=== PATIENT | female | born 1970 | race Caucasian/White ===

== ENCOUNTER 2020-12-23 11:49 | Outpatient (CLI) | payer OTHER, SELFPAY ==
--- NOTE | 2020-12-23 13:06 | ECG_ITS ---
Measurements Intervals [place] Rate: 59 P: 52 SC: 129 QRS: 23 QRSD: 96 T: -2 QT: 404 QTc: 402 Interpretive Statements SINUS BRADYCARDIA NONSPECIFIC T-WAVE ABNORMALITY- ANTEROLAT/INF LEADS BASELINE ARTIFACT- I, II, III, AVR, AVL, AVF BORDERLINE ECG Electronically Signed On 12-23-2020 13:50:24 [employer] by Carter Leigh D.O.
[2020-12-23 13:28] LABS: Basophils Percent Auto 0.3 % (0.2-1.2); Eosinophils Absolute Auto 0.1 K/mm3 (0-0.3); Eosinophils Percent Auto 1.3 % (0-4.4); Hematocrit 43.6 % (37.0-47.0); Hemoglobin 14.4 g/dL (12.0-15.0); Immature Granulocyte Absolute 0.02 K/mm3 (0.00-0.031); Immature Granulocyte Percent A 0.3 % (0-0.5); Lymphocytes Percent Auto 31.4 % (18.3-44.2); Mean Corpuscular Hemoglobin 29.3 pg (26-34); Mean Corpuscular Volume 88.8 fl (80-100); Mean Platelet Volume 8.7 fl (7.4-10.4); Monocytes Absolute Auto 0.4 K/mm3 (0.1-0.6); Monocytes Percent Auto 5.5 % (2.6-8.5); Neutrophils Absolute Auto 4.7 K/mm3 (1.3-6.7); Neutrophils Percent Auto 61.2 % (45.5-73.1); Platelet Count Result 284 k/mm3 (150-375); Red Blood Count 4.91 M/mm3 (4.2-5.4); Red Cell Distribution Width 12.5 % (11.5-14.5); White Blood Count 7.6 K/mm3 (4.5-10.0)
[2020-12-23 13:37] LABS: INR 0.9; Prothrombin Time 12.9 Seconds (11.1-14.7)
[2020-12-23 13:38] LABS: Partial Thromboplastin Time 22.6 SECONDS (22.3-36.8)
[2020-12-23 13:44] LABS: Alanine Aminotransferase 24 U/L (4-35); Albumin Level 3.8 g/dL (3.5-5.1); Alkaline Phosphatase 111 U/L (38-126); Anion Gap 4 mmol/L (8-16); Aspartate Amino Transferase 30 U/L (14-36); Bilirubin,Total 0.3 mg/dL (0.2-1.3); Blood Urea Nitrogen 18 mg/dL (7-17); Calcium 8.4 mg/dL (8.4-10.2); Carbon Dioxide 34 mmol/L (22-30); Chloride 105 mmol/L (98-107); Estimated Glomerular Filt Rate > 60; Glucose 101 mg/dL (65-105); Potassium 3.5 mmol/L (3.4-5.0); Sodium 143 mmol/L (137-145)
== END 2020-12-23 11:50 | disposition home or self-care (01) ==
LOC: ANHSURGERY 11:53
PROVIDERS: Family Provider Internal Medicine; PCP Emergency Medicine; Visit Provider Urology
DX: N81.4 Uterovaginal prolapse, unspecified (principal); R00.0 Tachycardia, unspecified; Z01.818 Encounter for other preprocedural examination; R94.31 Abnormal electrocardiogram [ECG] [EKG]
CPT/HCPCS: 36415; 80053; 85025; 85610; 85730; 93005

== ENCOUNTER 2021-02-19 14:20 | Outpatient (CLI) | payer OTHER, SELFPAY | END 2021-02-19 14:21 | disposition home or self-care (01) | LOC: ANHSURGERY 14:22 | PROVIDERS: PCP Emergency Medicine; Visit Provider Urology | DX: N81.4 Uterovaginal prolapse, unspecified (principal); Z01.818 Encounter for other preprocedural examination | CPT/HCPCS: 36415; 86850; 86900; 86901; 87086; 87088 ==

== ENCOUNTER 2021-02-24 01:47 | Day surgery (SDC) | payer OTHER, SELFPAY ==
[2020-12-23 12:22] VITALS: BP 112/69; PULSE 68; RESP 16; TEMP 36.8; O2SAT 98; BMI 29.6
[2021-02-11 15:36] VITALS: BMI 29.8
--- NOTE | 2021-02-15 11:36 | PM.IMHP ---
H&P: HPI History of Present Illness Date/Time: 02/15/21 11:36 50-year-old with uterine prolapse, stress urine incontinence. she presents for surgical management history of DVT / PE. Will require postoperative blood thinner Chief Complaint: uterine prolapse, stress incontinence Review of Systems Review of Systems: All systems reviewed & are unremarkable except as noted in HPI and below PMFSH Family History Family History (Updated 06/12/16 @ 23:19 by DOCTOR UNKNOWN) Father Family history of diabetes mellitus in first degree relative Family history of renal failure Patient's father is Other Diabetes mellitus Social History Social History Smoking status: Never smoker Alcohol intake: never Substance use: never Additional living arrangements comments: SPOUSE AND CHILD Spiritual care concerns: No Meds Home Medications and Allergies Home Medications Medication Instructions Recorded Confirmed Type pvhosqqtru-uolxdmvsqahyn-cwvx 1 tablet PO QID PRN 12/23/20 02/11/21 History calcium 600 mg PO DAILY 12/23/20 02/11/21 History cyanocobalamin (vitamin B-12) 5,000 mcg SUBLINGUAL DAILY 12/23/20 02/11/21 History [Vitamin B-12] ferrous sulfate [Iron (ferrous 325 mg PO DAILY 12/23/20 02/11/21 History sulfate)] magnesium 250 mg PO DAILY 12/23/20 02/11/21 History metoprolol tartrate 25 mg PO BID 12/23/20 02/11/21 History multivitamin [Multiple Vitamin] 1 tablet PO DAILY 12/23/20 02/11/21 History amoxicillin 500 mg PO Q12H 02/11/21 02/11/21 History Allergies Allergy/AdvReac Type Severity Reaction Status Date / Time codeine Allergy Unknown Hives Verified 02/11/21 15:33 Iodinated Contrast Media Allergy Unknown Rash Verified 02/11/21 15:33 hydrocodone Allergy Chest Pain Verified 02/11/21 15:33 tramadol Allergy Hives Verified 02/11/21 15:33 lisinopril AdvReac Unknown Cough Verified 02/11/21 15:33 Exam Const: General: cooperative and healthy appearing HENMT: Head: normal to inspection Face and sinus: normal facial exam Eyes: General: appearance normal, both eyes and all related structures Chest: Chest palpation & inspection: normal inspection of the chest Resp: Effort & Inspection: normal respiratory effort and able to speak in complete sentences : Bimanual exam- vagina & uterus: Uterus displaced Bimanual Exam- Adnexa, other: No apex supported and vaginal apex descent Back/Spine/Pelvis: Back: no CVA tenderness Skin: General skin exam: normal color Neuro: General: oriented to person, oriented to place, oriented to time and patient oriented x3 Assessment and Plan Assessment and plan (1) Uterine prolapse: Code(s): N81.4 - Uterovaginal prolapse, unspecified Status: Acute Assessment and Plan: robotic sacral colpopexy (2) LUCIANA (stress urinary incontinence, female): Code(s): N39.3 - Stress incontinence (female) (male) Status: Acute Assessment and Plan: urethral sling
[2021-02-24] VITALS (15 sets, daily range): BP systolic 109–161; BP diastolic 54–92; PULSE 64–98; RESP 10–20; TEMP 36.2–37.1; O2SAT 94–100
[2021-02-24] MEDS: ACETAMINOPHEN 500 MG TABLET 1000 MG PO (06:18)
[2021-02-24] MEDS: LACTATED RINGERS 1,000 ML 30 ML IV CONT ×2 (06:30→11:15)
--- NOTE | 2021-02-24 06:46 | P.PNAN_ITS ---
Anes - Initial Pre Proc Eval Procedure: Operation Date: 02/24/21 07:30 Proposed Procedures p Robotic Sacrocolpopexy Possible Urethral Sling - Otis Mujica MD s Robotic Assisted Supracervical Hysterectomy With Bilateral Salpingo- Oophorectomy - Rashaad Silva MD Date/Time: 02/24/21 06:46 Surgeon: Otis Mujica MD Pre Op Diagnosis: Uterine Prolapse,Overactive Bladder Patient Data Age: 50 Gender: F Height: 5 ft 8 in Weight: 89 kg Last Vital Signs Temp 36.8 C 12/23/20 12:22 Pulse 68 12/23/20 12:22 Resp 16 12/23/20 12:22 BP 112/69 12/23/20 12:22 Pulse Ox 98 12/23/20 12:22 Allergies Allergy/AdvReac Type Severity Reaction Status Date / Time codeine Allergy Unknown Hives Verified 02/11/21 15:33 Iodinated Contrast Media Allergy Unknown Rash Verified 02/11/21 15:33 hydrocodone Allergy Chest Pain Verified 02/11/21 15:33 tramadol Allergy Hives Verified 02/11/21 15:33 lisinopril AdvReac Unknown Cough Verified 02/11/21 15:33 Home Medications Medication Instructions Recorded Confirmed Type lwfqlnuwis-kckzuctdmpthn-xxty 1 tablet PO QID PRN 12/23/20 02/11/21 History calcium 600 mg PO DAILY 12/23/20 02/11/21 History cyanocobalamin (vitamin B-12) 5,000 mcg SUBLINGUAL DAILY 12/23/20 02/11/21 History [Vitamin B-12] ferrous sulfate [Iron (ferrous 325 mg PO DAILY 12/23/20 02/11/21 History sulfate)] magnesium 250 mg PO DAILY 12/23/20 02/11/21 History metoprolol tartrate 25 mg PO BID 12/23/20 02/11/21 History multivitamin [Multiple Vitamin] 1 tablet PO DAILY 12/23/20 02/11/21 History amoxicillin 500 mg PO Q12H 02/11/21 02/11/21 History Patient hx anesthesia problems: none Family hx anesthesia problems: none PMFSH Past Medical History Medical History (Updated 02/24/21 @ 06:46 by Bonifacio Mclean MD) Obesity Surgical History Surgical History (Updated 02/24/21 @ 06:46 by Bonifacio Mclean MD) History of cholecystectomy History of gastric surgery Family History Family History (Updated 06/12/16 @ 23:19 by DOCTOR UNKNOWN) Father Family history of diabetes mellitus in first degree relative Family history of renal failure Patient's father is Other Diabetes mellitus Social History Social History Smoking status: Never smoker Alcohol intake: never Alcohol use details: DRANK SOCIALLY IN PAST Substance use: never Living arrangements: with family Additional living arrangements comments: SPOUSE AND CHILD Spiritual care concerns: No Anes - Eval Final PreProcedure Day of Procedure 02/24/21 06:46 Patient weight: obese Heart: regular rate and rhythm Lungs: clear to auscultation Airway: Mallampati scale class II Neurological: alert and oriented Last oral intake: >/= 8 hours ASA classification: III Emergent: no Anesthetic plan: proceed Anesthesia type and monitoring: general and standard monitoring Informed Consent: The patient's anesthetic plan and its attendant risks and benefits were discussed with the patient/family/POA. Questions were solicited and answers provided to the satisfaction of the patient/family/POA.
--- NOTE | 2021-02-24 07:15 | WPDHPUPDATE1 ---
History and Physical Update Update Date/Time: 02/24/21 07:15 History and Physical has been reviewed, including an updated exam of the patient. There are NO changes in the patient's condition. Risks, benefits, and alternatives have been discussed and questions answered. Patient agrees to proceed with procedure.
--- NOTE | 2021-02-24 07:20 | PM.IMHP ---
H&P: HPI History of Present Illness Date/Time: 02/24/21 07:20 50 yo who presents today for robotic hysterectomy and sacrocolpopexy for pelvic organ prolapse. Pt presented wiht pelvic pressure and heavy vaginal bleeding in the setting of a known uterine fibroid. Chief Complaint: pelvic organ prolapse, abnormal uterine bleeding Review of Systems Cardiovascular: Cardiovascular: Denies chest pain, Denies leg edema, Denies palpitations, Denies dyspnea and Denies dyspnea on exertion Respiratory: Respiratory: Denies cough, Denies dyspnea and Denies dyspnea on exertion Gastrointestinal: Gastrointestinal: Denies abdominal pain, Denies constipation, Denies diarrhea, Denies nausea and Denies vomiting Genitourinary: Genitourinary: Denies hematuria, Denies urinary frequency, Denies dysuria, Denies pelvic pain, Denies urinary incontinence and Denies vaginal discharge Neurologic: Reports system reviewed and no additional complaints, except as documented Psychiatric: Psychiatric: Reports no additional psychiatric complaints Endocrine: Endocrine: Denies palpitations PMFSH Past Medical History Medical History (Updated 02/24/21 @ 07:23 by Rashaad Silva MD) Obesity Surgical History Surgical History (Updated 02/24/21 @ 06:46 by Bonifacio Mclean MD) History of cholecystectomy History of gastric surgery Family History Family History (Updated 06/12/16 @ 23:19 by DOCTOR UNKNOWN) Father Family history of diabetes mellitus in first degree relative Family history of renal failure Patient's father is Other Diabetes mellitus Social History Social History Smoking status: Never smoker Alcohol intake: never Alcohol use details: DRANK SOCIALLY IN PAST Substance use: never Living arrangements: with family Additional living arrangements comments: SPOUSE AND CHILD Spiritual care concerns: No Meds Home Medications and Allergies Home Medications Medication Instructions Recorded Confirmed Type hnbxuuwxof-esksidayzltgg-ebqu 1 tablet PO QID PRN 12/23/20 02/24/21 History calcium 600 mg PO DAILY 12/23/20 02/24/21 History cyanocobalamin (vitamin B-12) 5,000 mcg SUBLINGUAL DAILY 12/23/20 02/24/21 History [Vitamin B-12] ferrous sulfate [Iron (ferrous 325 mg PO DAILY 12/23/20 02/24/21 History sulfate)] magnesium 250 mg PO DAILY 12/23/20 02/24/21 History metoprolol tartrate 25 mg PO BID 12/23/20 02/24/21 History multivitamin [Multiple Vitamin] 1 tablet PO DAILY 12/23/20 02/24/21 History Allergies Allergy/AdvReac Type Severity Reaction Status Date / Time codeine Allergy Unknown Hives Verified 02/11/21 15:33 Iodinated Contrast Media Allergy Unknown Rash Verified 02/11/21 15:33 hydrocodone Allergy Chest Pain Verified 02/11/21 15:33 tramadol Allergy Hives Verified 02/11/21 15:33 lisinopril AdvReac Unknown Cough Verified 02/11/21 15:33 Vital Signs Vital Signs - 24 hr 02/24/21 07:00 Temperature 36.3 C L Pulse Rate 64 Respiratory Rate 20 Blood Pressure 122/64 Pulse Oximetry 100 Exam Const: General: no acute distress Eyes: EOM: EOMs intact bilaterally Neck: Neck: supple Thyroid: thyroid normal Chest: Breast/axilla inspection: normal inspection of the breasts Breast/axilla palpation: normal palpation of the breasts, normal palpation of the axillae and no axillary lymphadenopathy Resp: Effort & Inspection: normal respiratory effort Auscultation: clear to auscultation bilaterally Cardio: Rate: regular rate Rhythm: regular rhythm GI: Inspection: non-distended GI Palp: Yes Soft to palpation, No Tenderness to palpation present (GI) and No Guarding due to palpation present (GI) Auscultation: normal bowel sounds : General: No bladder normal to palpation External Female Exam: normal external appearance Speculum Exam - Vagina: normal vaginal discharge and No vaginal bleeding Speculum Exam - Cervix: nontender
--- NOTE | 2021-02-24 07:22 | WPDHPUPDATE1 ---
History and Physical Update Update Date/Time: 02/24/21 07:22 History and Physical has been reviewed, including an updated exam of the patient. There are NO changes in the patient's condition. Risks, benefits, and alternatives have been discussed and questions answered. Patient agrees to proceed with procedure.
[2021-02-24] MEDS: ceFAZolin 2 GM/D5W 50 ML 2 GM/50 ML BAG IVPB (07:27)
[2021-02-24] MEDS: metroNIDAZOLE 500 MG/ISO 100ML 500 MG/100 ML BAG 100 MG IVPB ×2 (07:44→16:41)
--- NOTE | 2021-02-24 07:44 | SUR.PREOP ---
0725 - Dr. Silva called in regards to Toradol order. Dr. Silva stated to hold medication at this time.
[2021-02-24] MEDS: HEPARIN SODIUM 5,000 UNITS/ML VIAL 5000 UNITS SUB-Q (08:31)
--- NOTE | 2021-02-24 08:48 | P.OP_ITS ---
Procedure Note - Detailed Date of procedure: 02/24/21 Pre-op diagnosis: Uterine Prolapse,Overactive Bladder Post-op diagnosis: same Procedure performed: Robotic assisted total laparoscopic hysterectomy bilateral salpingo-oophorectomy Description of procedure: PROCEDURE IN DETAIL: After the patient was appropriately consented she was taken to the operating room where she was transferred to the table in a dorsal supine position. General anesthesia was then induced with endotracheal intubation. The patient was transferred to a dorsal lithotomy position using adjustable yellow-fin stirrups. Her position was adjusted for appropriate suppor t of her lower back and lower extremities. The patient was prepped and draped. A transurethral griffiths catheter was place. The cervix was sequentially dilated and a acorn uterine manipulator placed in typical fashion a. Dr. Mujica was scrubbed and performed the abdominal entry and laparoscopic port placement part of the procedure. Please see his dictation for full details. The robot was then docked. Pelvic survey was performed which showed a large fibroid uterus. There was a small amount of large bowel adhesions to the left pelvic side wall that were removed with monopolar scissors. The Left round ligament was divided and the pararectal and paravesicle spaces developed, identifying the course of the ureter. The infundibulopelvic ligaments were skeletonized, triply coagulated and then transected with monopolar candida away from the course of the ureter. The posterior aspect of the broad ligament was then skeletonized down to the level of the internal cervical os, mobilizing the ureter laterally. The bladder flap was then created sharply. The ipsilateral uterine artery was skeletonized, bipolar cauterized and transected. A similar procedure was performed on the contralateral side, developing the pelvic spaces, coagulating and dividing the IP away from the ureter, completing the bladder flap, and skeletonizing, ligating, and dividing the uterine artery on this side. We located the level of the external cervical os with pressure of the acorn manipulator and made a circumferential colpotomy using monopolar current approximately 1 cm above the level of the os. The uterus, bilateral tubes and ovaries were then transected from the cervical stump. The surgical field was inspected and noted to be hemostatic. The remainder of the procedure was performed by Dr. Mujica. Anesthesia: GETA Surgeon: Rashaad Silva MD Estimated blood loss (mL): 25 Drains: No Packing: No Pathology: yes (uterus, bilateral fallopian tubes, bilateral ovaries ) Complications: No immediate complications Condition: stable Disposition: PACU
[2021-02-24] MEDS: BUPIVACAINE/EPINEPHRINE 0.25% 50 ML VIAL INFILTRATE (09:36)
--- NOTE | 2021-02-24 11:07 | PM.PROC ---
Procedure Note - Detailed Date of procedure: 02/24/21 Pre-op diagnosis: Uterine Prolapse,Overactive Bladder Uterine prolapse Stress urinary incontinence Post-op diagnosis: same Procedure performed: Robotic assisted laparoscopic sacral colpopexy Mid urethral sling (transobturator sling) Cystoscopy Description of procedure: She understood the risks of bleeding, infection, damage to surrounding organs, bowel injury, bowel obstruction, recurrence of prolapse, persistent or recurrent stress incontinence, mesh related complications including exposure and extrusion, diskitis, postoperative voiding dysfunction including incontinence and retention, hip and leg pain, dyspareunia, and she agrees to proceed. She was correctly identified and informed consent was obtained. She was brought to the operating room. She was given general anesthesia. She was placed in the dorsal lithotomy position. All pressure points were padded. She was given appropriate perioperative antibiotics. Time-out performed. I anesthetized the skin 3 fingerbreadths cephalad to the umbilicus. I incised the skin. I dissected down to locate the fascia. I grasped the fascia with Antwan clamps. I entered the fascia sharply. I placed Vicryl sutures for later fascial closure. I placed a midline trocar. Under direct vision 2 additional trocars were placed on the right and left upper quadrant. She was placed in steep Trendelenburg and the robot was docked. Her director speech and hearing performed the portion of the procedure and left the specimen and a sac which was extracted. I then sat at the console. With the Sizer in the vagina I created a plane on the anterior and posterior vaginal wall. This was done for several cm taking great care not to injure the vagina, bladder, or rectum. I introduced the mesh into the abdomen. I sewed the anterior leaflet of mesh on the anterior vaginal wall and posterior leaf of the mesh on the posterior vaginal wall with several [place] sutures taking great care not to go through and through. I then reflected the colon laterally. I opened up the posterior peritoneum over the sacral promontory. I carried this into the cul-de-sac. I kept the ureters lateral. I freed up the edges. I located the anterior longitudinal ligament of the sacrum. I tensioned the mesh appropriately. I did a vaginal exam to ensure prolapse reduction without undue tension. I then sewed the proximal leaflet of mesh onto the ligament with 3 sutures of 2 0 [place]. Next the mass was meticulously retroperitonealized with a running 2 0 Monocryl suture. I allowed the colon to go back into its normal anatomic location. There is no signs of any impingement or stricturing. The abdomen was exited. Fascia was closed. Skin was closed with Monocryl and glue. She was repositioned and prepped for urethral sling. I marked out the thigh incisions. I anesthetize the skin and made those incisions. I anesthetized the anterior vaginal wall over the mid urethra. I made a 1 cm incision. I dissected out laterally taking great care not to injure the urethra or the vaginal wall. I next passed the helical trocars to 1st on the left and then on the right. This was done from the thigh incision towards the vaginal incision. The sling was connected to the trocars and brought out through the thigh incision. I tensioned the sling appropriately. I cut and removed the plastic sheaths. I then closed the incision with 2 0 Vicryl. I then performed cystoscopy. The bladder is examined. There was no tumors, stones, foreign bodies, surgical artifact. Both ureters were seen to excrete clear yellow urine. There is no surgical artifact in the urethra. Catheter was then replaced. She was awakened and transferred to the PACU in stable condition. Anesthesia: GLMA Surgeon: Otis Mujica MD Drains: Yes (Genao catheter) Packing: Yes Complications: No immediate complications Condition: stable Disposition: PACU
[2021-02-24] MEDS: fentaNYL CITRATE INJ (*CRX) 100 MCG/2 ML VIAL 25 MCG IV PUSH ×4 (12:14→12:46)
[2021-02-24] MEDS: diphenhydrAMINE HCl INJ 50 MG/ML VIAL 25 MG IV PUSH (12:21)
--- NOTE | 2021-02-24 13:17 | PC.NURSE ---
This patient, Kenisha Lakhani, was received from PACU per the bed on 02/24/21 at 1317. Patient/family oriented to unit policies and routines
[2021-02-24] MEDS: DOCUSATE SODIUM 100 MG CAPSULE PO (15:47)
[2021-02-24] MEDS: oxyCODONE/ACETAMINOPHEN (*CRX) 5-325 MG TABLET 1 TABLET PO ×3 (15:47→23:40)
--- NOTE | 2021-02-24 16:12 | PC.NURSE ---
Toradol d/c'd per note on [facility] that pt has a hx of gastric surgery.
[2021-02-24] MEDS: METOPROLOL TARTRATE 25 MG TABLET PO (23:40)
[2021-02-24] MEDS: KCL 20 MEQ/D5/0.45% SOD CHL 1,000 ML 100 ML IV CONT (23:46)
[2021-02-25 00:09] VITALS: BP 130/65; PULSE 97; RESP 16; TEMP 37.1; O2SAT 95
[2021-02-25] MEDS: metroNIDAZOLE 500 MG/ISO 100ML 500 MG/100 ML BAG 100 MG IVPB ×2 (00:40→09:20)
[2021-02-25 04:15] VITALS: BP 96/53; PULSE 71; RESP 14; TEMP 37; O2SAT 93
[2021-02-25] MEDS: oxyCODONE/ACETAMINOPHEN (*CRX) 5-325 MG TABLET 1 TABLET PO ×2 (04:26→08:33)
--- NOTE | 2021-02-25 07:31 | WPDANESPN ---
Anes - Prog Note Post-Op Date/Time: 02/25/21 07:31 Cardiovascular status: normal Respiratory status: normal Airway patency: baseline Mental status: baseline Post-Op hydration status: normal Vital Signs: Last Vital Signs Temp 37.0 C 02/25/21 04:15 Pulse 71 02/25/21 04:15 Resp 14 02/25/21 04:15 BP 96/53 L 02/25/21 04:15 Pulse Ox 93 02/25/21 04:15 Pain Score (VAS): 2/10 I/O: Intake & Output 02/24/21 02/24/21 02/25/21 15:59 23:59 07:59 Intake Total 300 150 600 Output Total 180 1550 Balance 120 150 -950 Post-procedural complaints: none Patient Feedback: Patient satisfied with anesthetic care.
--- NOTE | 2021-02-25 07:53 | PM.DS ---
DS: Admitting Diagnosis Admitting Diagnosis Admitting Diagnosis: pelvic organ prolapse overactive bladder urinary incontinence uterine fibroid DS: Summary Hospital Course Hospital Course: Kenisha Lakhani was admitted after robotic assisted total laparoscopic hysterectomy and bilateral salpingo-oophorectomy, sacrocolpopexy and urinary sling for pelvic organ prolapse and urinary incontinence. The above procedure was performed with no complications. She is doing well post op. She states her pain is well controlled with PO medications. She reports minimal bleeding. She is ambulating up to the chair. Her griffiths catheter was removed. She is tolerating PO without N/V. She reports passing flatus. Status at Discharge Overall status at discharge: patient is progressing back to baseline Time Spent with Patient Time attestation: Total time spent providing and/or coordinating discharge services: Time spent: Less than 30 minutes Exam Const: General: comfortable and no acute distress Limitations: no limitations Resp: Effort & Inspection: normal respiratory effort Auscultation: clear to auscultation bilaterally Cardio: Rate: regular rate Rhythm: regular rhythm GI: Inspection: non-distended GI Palp: Yes Soft to palpation, Yes Tenderness to palpation present (GI) (milder tenderness to deep palpation) and No Guarding due to palpation present (GI) Auscultation: normal bowel sounds Other: incisions C/D/I covered with dermabond Urinary Catheter: Urinary Catheter: urine clear Skin: General skin exam: normal color Extrem: General: normal to inspection Psych: Mental Status: mental status grossly normal Affect: normal affect DS: Data Data Completed and Pending Pending studies at discharge: Pending at discharge 02/24/21 08:35 Surgical [PTH] Routine Discharge Plan Discharge Patient Disposition: Home, Self-Care Patient Instructions: Laparoscopic Hysterectomy (DC) Stand Alone Forms: General Discharge Instructions Follow-up/Referrals: Otis Mujica MD [Physician] - 2 Weeks Rashaad Silva MD [Physician] - Discharge Medications: New oxycodone-acetaminophen 5-325 mg tablet 1 tablet PO Q6H PRN (Reason: pain) Qty: 30 RF: 0 docusate sodium [Colace] 100 mg capsule 100 mg PO BID Qty: 60 RF: 0 enoxaparin [Lovenox] 30 mg/0.3 mL syringe 30 mg subcut DAILY 10 Days Qty: 3 RF: 0 Continued metoprolol tartrate 25 mg tablet 25 mg PO BID RF: 0 multivitamin Tablet 1 tablet PO DAILY RF: 0 calcium 600 mg Capsule 600 mg PO DAILY RF: 0 qqainwgbws-nevwiuxljxdov-umtp 50-325-40 mg tablet 1 tablet PO QID PRN (Reason: Migraine Headache) RF: 0 ferrous sulfate [Iron (ferrous sulfate)] 325 mg (65 mg iron) Tablet 325 mg PO DAILY RF: 0 magnesium 250 mg Tablet 250 mg PO DAILY RF: 0 cyanocobalamin (vitamin B-12) [Vitamin B-12] 5,000 mcg Tablet, Sublingual 5,000 mcg SUBLINGUAL DAILY RF: 0
[2021-02-25 08:30] VITALS: BP 106/56; PULSE 87; RESP 16; TEMP 37.6; O2SAT 92
[2021-02-25] MEDS: DOCUSATE SODIUM 100 MG CAPSULE PO (08:33)
[2021-02-25] MEDS: ENOXAPARIN 30 MG/0.3 ML SYRINGE SUB-Q (08:34)
[2021-02-25] MEDS: METOPROLOL TARTRATE 25 MG TABLET PO (08:34)
--- NOTE | 2021-02-25 16:16 | WPDUROPN2 ---
Progress Note: A&P Assessment and Plan (1) Uterine fibroid: Code(s): D25.9 - Leiomyoma of uterus, unspecified Status: Acute Assessment and Plan: Ok to discharge home to follow up as planned. (2) LUCIANA (stress urinary incontinence, female): Code(s): N39.3 - Stress incontinence (female) (male) Status: Acute (3) Uterine prolapse: Code(s): N81.4 - Uterovaginal prolapse, unspecified Status: Acute Subjective Subjective Date/Time Seen: 02/25/21 16:16 POD #1 Robotic Assisted Laparoscopic Sacral Colpopexy, mid urethral sling, cystoscopy Robotic Assisted Total Laparoscopic Hysterectomy with bilateral salpingo-oophorectomy. Patient having low back and abdominal pain, but it is controlled with pain medications. Catheter is out and she is urinating well. Review of Systems Cardiovascular: Cardiovascular: Denies chest pain Respiratory: Respiratory: Reports no additional respiratory complaints Gastrointestinal: Gastrointestinal: Reports abdominal pain, Denies nausea and Denies vomiting Genitourinary: Genitourinary: Denies dysuria, Denies pelvic pain and Reports flank pain Exam Resp: Effort & Inspection: normal respiratory effort Cardio: Rate: regular rate GI: GI Palp: Yes Soft to palpation and Yes Tenderness to palpation present (GI) (incisions only, no edema or drainage, incisions are well approximated) : General: Yes no CVA tenderness Extrem: General: no edema Objective Data Vital Signs Vital Signs: Vital Signs - 24 hr 02/24/21 19:33 02/24/21 23:40 02/25/21 00:09 Temperature 98.7 F 98.7 F Pulse Rate 97 94 97 Respiratory Rate 16 16 Blood Pressure 133/71 130/65 Pulse Oximetry 94 95 02/25/21 04:15 02/25/21 08:30 Temperature 98.6 F 99.6 F Pulse Rate 71 87 Respiratory Rate 14 16 Blood Pressure 96/53 L 106/56 L Pulse Oximetry 93 92 Intake/Output Intake/Output: Intake & Output 02/22/21 02/23/21 02/24/21 02/25/21 23:59 23:59 23:59 23:59 Intake Total 500 800 Output Total 180 1950 Balance 320 -1150
== END 2021-02-25 11:02 | disposition home or self-care (01) ==
LOC: ANHSURGERY 05:51 → ANHOB2 13:17
PROVIDERS: Student in an Organized Health Care Education/Training Program; Family Provider Internal Medicine; PCP Emergency Medicine; Visit Provider Urology
PROC: (CPT 57425; principal; 2021-02-24 07:30)
PROC: (CPT 58542; 2021-02-24 07:30)
DX: N81.4 Uterovaginal prolapse, unspecified (principal); N39.3 Stress incontinence (female) (male); D25.1 Intramural leiomyoma of uterus; N70.11 Chronic salpingitis; E66.9 Obesity, unspecified; Z68.29 Body mass index [BMI] 29.0-29.9, adult; N32.81 Overactive bladder; N80.0 Endometriosis of uterus; N73.6 Female pelvic peritoneal adhesions (postinfective)
CPT/HCPCS: 57288; 57425; 58542; S2900 ×2; 36415; 86850; 86900; 86901; 87086; 87088; 88307; 99199; A9270; C1771; C1781; C9290; J0690; J1100; J1170; J1200; J1644; J1650; J2250; J2405; J2704; J2710; J3010; J3480; J7030; J7120

== ENCOUNTER 2021-06-04 08:16 | Emergency (ER) | payer OTHER, SELFPAY ==
--- NOTE | ~2021-06-04 | CT_ITS ---
EXAMINATION: CT abdomen pelvis wo con DATE: 06/04/2021 09:49 INDICATION: Flank pain, chest pain, dizziness TECHNIQUE: Computed tomography (CT) of the abdomen and pelvis was performed without intravenous contr ast. Automated exposure control and iterative reconstruction technique were employed. Exam dose: 110 0.05 mGy-cm total exam DLP. COMPARISON: 04/29/2014 CT abdomen pelvis FINDINGS: The lung bases are clear. Heart size is within normal range. No pericardial or pleural effusion. Small sliding hiatal hernia. Postoperative change of the stomach. Status post cholecystectomy. Status post appendectomy. No hepatic, splenic, pancreatic or left adrenal space-occupying mass lesion is evident. Approximately 13 mm right adrenal probable adenoma. There are several pinpoint nonobstructing right renal calculi. 2 and possibly 3 very subtle pinpoint nonobstructing left renal calculi are suggested. No ureteral calculus or hydroureteronephrosis is [place]. The urinary bladder is unremarkable. Status post hysterectomy. Normal caliber of the abdominal aorta. No intraperitoneal or retroperitoneal or pelvic mass lesion or adenopathy or ascites. No bowel obstruction, bowel wall thickening, pneumatosis or intraperitoneal free air is detected. Small fat-containing umbilical hernia. Included skeletal structures are unremarkable. IMPRESSION: Small sliding hiatal hernia Postoperative change of the stomach Status post cholecystectomy Status post appendectomy Status post hysterectomy Stable approximately 13 mm right adrenal adenoma, not significantly changed since 04/29/2014 Bilateral nonobstructive nephrolithiasis Reviewed, dictated and finalized at [facility]. Reviewed, dictated and finalized at [facility]. IMPRESSION: Small sliding hiatal hernia Postoperative change of the stomach Status post cholecystectomy Status post appendectomy Status post hysterectomy Stable approximately 13 mm right adrenal adenoma, not significantly changed sin ce 04/29/2014 Bilateral nonobstructive nephrolithiasis
--- NOTE | ~2021-06-04 | XR_ITS ---
XR chest 2V DATE: 06/04/2021 08:36 INDICATION: Chest pain TECHNIQUE: PA and lateral views COMPARISON: 12/20/2018 PA and lateral chest FINDINGS: Normal heart size. No hilar or mediastinal enlargement. Calcified pulmonary granuloma at th e anterior segment of the left upper lobe. No pulmonary infiltrate or consolidation, pleural effusion or pulmonary vascular congestion or pneumothorax. Status post cholecystectomy. Included skeletal structures are unremarkable. IMPRESSION: No active cardiopulmonary disease Reviewed, dictated and finalized at [facility].
--- NOTE | 2021-06-04 08:22 | ECG_ITS ---
Measurements Intervals [place] Rate: 56 P: 55 CO: 149 QRS: 20 QRSD: 93 T: -5 QT: 393 QTc: 381 Interpretive Statements SINUS BRADYCARDIA NONSPECIFIC T-WAVE ABNORMALITY- INFERIOR LEADS BASELINE ARTIFACT- II, III, AVF, V1, V3-V6 BORDERLINE ECG Electronically Signed On 06-04-2021 9:14:49 CDT by Carter Leigh D.O.
[2021-06-04 08:24] VITALS: BP 146/56; PULSE 56; RESP 16; TEMP 36.8; O2SAT 100
[2021-06-04 08:28] VITALS: PULSE 60
[2021-06-04] MEDS: ASPIRIN 81 MG CHEWABLE TABLET 324 MG PO (08:34)
[2021-06-04 08:46] LABS: Basophils Percent Auto 0.5 % (0.2-1.2); Eosinophils Absolute Auto 0.2 K/mm3 (0-0.3); Eosinophils Percent Auto 3.5 % (0-4.4); Hematocrit 43.8 % (37.0-47.0); Immature Granulocyte Absolute 0.01 K/mm3 (0.00-0.031); Immature Granulocyte Percent A 0.2 % (0-0.5); Lymphocytes Absolute Auto 1.61 K/mm3 (0.9-3.2); Lymphocytes Percent Auto 29.5 % (18.3-44.2); Mean Corpuscular Hemoglobin 28.6 pg (26-34); Mean Corpuscular Volume 89.6 fl (80-100); Mean Platelet Volume 9.1 fl (7.4-10.4); Monocytes Absolute Auto 0.3 K/mm3 (0.1-0.6); Monocytes Percent Auto 5.7 % (2.6-8.5); Neutrophils Absolute Auto 3.3 K/mm3 (1.3-6.7); Neutrophils Percent Auto 60.6 % (45.5-73.1); Platelet Count Result 215 k/mm3 (150-375); Red Blood Count 4.89 M/mm3 (4.2-5.4); Red Cell Distribution Width 12.8 % (11.5-14.5); White Blood Count 5.5 K/mm3 (4.5-10.0)
[2021-06-04 08:53] LABS: Prothrombin Time 12.6 Seconds (11.1-14.7)
[2021-06-04 08:54] LABS: Partial Thromboplastin Time 23.5 SECONDS (22.3-36.8)
[2021-06-04 08:56] LABS: Anion Gap 6 mmol/L (8-16); Blood Urea Nitrogen 19 mg/dL (7-17); Carbon Dioxide 31 mmol/L (22-30); Chloride 105 mmol/L (98-107); Estimated CRCL calculation 112 ml/min; Estimated Glomerular Filt Rate > 60; Glucose 113 mg/dL (65-110); Potassium 4.1 mmol/L (3.4-5.0); Sodium 142 mmol/L (137-145)
[2021-06-04 09:07] LABS: Troponin I < 0.012 ng/mL (0.000-0.034)
--- NOTE | 2021-06-04 09:19 | PC.NURSE ---
called lab and talked to Nabila burns on a hepatic lipase at 0919
[2021-06-04 09:39] LABS: Alanine Aminotransferase 49 U/L (4-35); Albumin Level 4.3 g/dL (3.5-5.1); Alkaline Phosphatase 133 U/L (38-126); Aspartate Amino Transferase 113 U/L (14-36); Bilirubin,Total 0.6 mg/dL (0.2-1.3); Lipase 901 U/L (23-300)
[2021-06-04] MEDS: SODIUM CHLORIDE 0.9% IV 1,000 ML 999 ML IV CONT (09:56)
[2021-06-04] MEDS: ONDANSETRON INJ 4 MG/2 ML VIAL IV PUSH (09:56)
[2021-06-04] MEDS: FAMOTIDINE 20 MG/2 ML VIAL IV PUSH (09:56)
[2021-06-04 10:06] VITALS: BP 135/55; PULSE 52; RESP 16; O2SAT 100
[2021-06-04 10:18] LABS: Add Urine Microscopic? YES; Appearance Urine Cloudy (Clear); Bacteria Urine Trace /hpf; Bilirubin Urine Negative (Negative); Blood Urine Negative (Negative); Color Urine Yellow (Yellow); Glucose Urine UA Negative (Negative); Ketones Urine Negative (Negative); Leukocyte Esterase Ur Trace LEU/UL (Negative); Mucus Urine Moderate /lpf; Nitrate Urine Negative (Negative); Protein Urine Negative (Negative); Specific Grav Ur 1.023 (1.001-1.035); Squamous Epithelial Cell Urine Many /hpf (Few)
--- NOTE | 2021-06-04 10:48 | PC.NURSE ---
called lab and talked to Francine added on a D dimer at [id number]
[2021-06-04 11:35] VITALS: BP 114/75; PULSE 60; RESP 16; O2SAT 100
[2021-06-04 12:06] LABS: Troponin I < 0.012 ng/mL (0.000-0.034)
[2021-06-04 12:12] LABS: D Dimer 0.39 ug/mL (<0.48)
[2021-06-04 13:36] VITALS: BP 135/66; PULSE 62; RESP 16; O2SAT 100
--- NOTE | 2021-06-04 14:31 | ED.CHESTPAIN ---
HPI - Chest Pain General Chief Complaint: Chest Pain Stated Complaint: UPPER ABD PAIN Time Seen by Provider: 06/04/21 09:09 Source: patient and family Mode of arrival: ambulatory Limitations: no limitations History of Present Illness HPI narrative: Patient is a 50-year-old female who presents to emergency department for evaluation of abdominal pain for evaluation noting that the pain occurred twice this morning described as a sharp stabbing pain across the upper quadrants of the abdomen with associated diaphoretic and nauseous sensation short-lived and resolved patient on arrival to emergency department is in the room in no distress resting comfortably denies any vomiting diarrhea notes that she had felt fine yesterday Related Data Home Medications Medication Instructions Recorded Confirmed [id number] 1 tablet PO QID PRN 12/23/20 02/24/21 calcium 600 mg PO DAILY 12/23/20 02/24/21 cyanocobalamin (vitamin B-12) 5,000 mcg SUBLINGUAL DAILY 12/23/20 02/24/21 [Vitamin B-12] ferrous sulfate [Iron (ferrous 325 mg PO DAILY 12/23/20 02/24/21 sulfate)] magnesium 250 mg PO DAILY 12/23/20 02/24/21 metoprolol tartrate 25 mg PO BID 12/23/20 02/24/21 multivitamin 1 tablet PO DAILY 12/23/20 02/24/21 Allergies Allergy/AdvReac Type Severity Reaction Status Date / Time codeine Allergy Unknown Hives Verified 02/11/21 15:33 Iodinated Contrast Media Allergy Unknown Rash Verified 02/11/21 15:33 hydrocodone Allergy Chest Pain Verified 02/11/21 15:33 tramadol Allergy Hives Verified 02/11/21 15:33 lisinopril AdvReac Unknown Cough Verified 02/11/21 15:33 Review of Systems Review of Systems: All systems reviewed & are unremarkable except as noted in HPI and below PMFSH Past Medical History Medical History Obesity Surgical History Surgical History History of cholecystectomy History of gastric surgery Family History Family History (Updated 06/12/16 @ 23:19 by DOCTOR UNKNOWN) Father Family history of diabetes mellitus in first degree relative Family history of renal failure Patient's father is Other Diabetes mellitus Social History Social History Smoking status: Never smoker Alcohol intake: never Alcohol use details: DRANK SOCIALLY IN PAST Substance use: never Additional living arrangements comments: [facility]SE AND CHILD Spiritual care concerns: No Exam Narrative: Exam Narrative: GENERAL: Well-appearing, well-nourished, and in no acute distress. HEAD: Normocephalic, atraumatic. EYES: PERRLA and EOMI. ENT: Nares clear, no rhinorrhea or epistaxis. Mucous membranes moist. CHEST: Clear to auscultation. No respiratory distress. No wheezes rales or rhonchi HEART: Regular rate and rhythm. No murmur heard. Normal peripheral pulses. ABDOMEN: Soft, nontender, nondistended EXTREMITIES: Normal range of motion. No edema. SKIN: Warm, dry, no rash. NEURO: No focal deficits. Alert and oriented x3. PSYCH: Normal mood and affect. Course Course Emergency Course: Patient evaluated in the emergency department hydrated medicated is been pain-free in the emergency department will be discharged home with plan follow-up with her desk clerk and primary care. Patient is afebrile nontoxic-appearing no distress. Patient given reasons to return. ABCs and vital signs intact and stable. Patient was made aware of her case findings treatment plan and diagnosis Consultations Consultation #1: Discussion was made with the desk clerk office who will follow patient and recommends that the patient can be sent home with pain medication Date: 06/04/21 Time: 14:35 Vital Signs Vital signs: Vital Signs Temperature 98.2 F 06/04/21 08:24 Pulse Rate 56 L 06/04/21 08:24 Respiratory Rate 16 06/04/21 08:24 Blood Pressure 1
[2021-06-04 14:51] VITALS: BP 126/64; PULSE 55; RESP 18; O2SAT 100
== END 2021-06-04 14:52 | disposition home or self-care (01) ==
PROVIDERS: Emergency Medicine Emergency Medical Services; Emergency Provider Emergency Medicine; PCP Emergency Medicine
DX: R10.9 Unspecified abdominal pain (principal); R00.1 Bradycardia, unspecified
CPT/HCPCS: 36415; 71046; 74176; 80048; 80076; 81001; 83690; 84484; 85025; 85380; 85610; 85730; 87086; 87088; 93005; 96361; 96374; 96375; 99284; A9270; J2405; J7030